=== PATIENT | female | born 1980 | race Caucasian/White ===

== ENCOUNTER 2019-04-07 05:54 | Day surgery (SDC) | payer OTHER ==
--- NOTE | 2019-04-05 15:45 | NUR ---
PT HERE TO PRE REGISTER. JUST CAME FROM DR SMITH'S OFFICE AFTER LABS DRAWN. PT REPORTS "DR WANTS TO WAVE THE EKG SINCE THE CXR WAS OK." CALL TO DR SMITH'S OFFICE. TO CANCEL PREOP EKG PER SABINA.
[~2019-04-07] VITALS: Ht 154.9 cm; Wt 59.0 kg
[2019-04-07 06:31] VITALS: BP 130/73
[2019-04-07 11:22] VITALS: BP 115/67
== END 2019-04-07 10:05 | disposition home or self-care (01) ==
LOC: DS 05:54 → OR 07:30 → DS 07:30
DX: N83.201 Unspecified ovarian cyst, right side (principal); N80.0 Endometriosis of uterus; N80.1 Endometriosis of ovary; F17.210 Nicotine dependence, cigarettes, uncomplicated; J45.909 Unspecified asthma, uncomplicated; Z98.890 Other specified postprocedural states; Z98.891 History of uterine scar from previous surgery; Z79.899 Other long term (current) drug therapy
CPT/HCPCS: C1758; J0330; J0690; J2175; J2250; J2405; J2704; J3010; J3490; J7120